=== PATIENT | female | born 1960 | race Caucasian/White ===

== ENCOUNTER 2020-03-05 13:52 | Emergency (ER) | payer OTHER ==
[2020-03-05 14:03] VITALS: BP 126/63; PULSE 76
--- NOTE | 2020-03-05 15:11 | CT ---
[id number] CT/CT Head WO IV EXAM: CT Head WO IV CLINICAL DATA: TRAUMA HEADACHE COMPARISON: NO PREVIOUS SIMILAR EXAM IS AVAILABLE FOR COMPARISON. FINDINGS: Craniectomy changes are seen There is no mass or mass effect. There is no hemorrhage or hydrocephalus. There are no extra-axial fluid collections. There are no sites of abnormal attenuation. IMPRESSION: NO PLAIN CT EVIDENCE OF ACUTE INTRACRANIAL PROCESS. Albert Sidhu MD 03/05/20 2803 Thank you for allowing us to participate in the care of your patient.
--- NOTE | 2020-03-05 15:15 | EDM.PDOC ---
ED HPI GENERAL MEDICAL PROBLEM - General Chief Complaint: General Stated Complaint: FELL AT WORK HIT HEAD Time Seen by Provider: 03/05/20 14:10 Source of Information: Reports: Patient History Limitations: Reports: No Limitations - History of Present Illness INITIAL COMMENTS - FREE TEXT/NARRATIVE: Patient comes emergency department today with complaints of a fall and head injury and jaw pain. Just prior to arrival the patient was at work when she was stepping off the bus she tripped fell landing on her left side. She struck her left confucianism and her left jaw. There was no loss of conscious. She did have a period of unsteadiness shortly thereafter that has resolved. She has no double vision. Vertigo or blurry vision. She complains of pain to her left confucianism. No intercranial headache. No nausea no vomiting. No weakness dizziness lightheadedness. No neck pain. She denies loss conscious. She denies any fever or chills. No shortness of breath cough or congestion. No abdominal pain nausea or vomiting. She does complain of some pain just on the left lower midline position of her jawline. No damage to her teeth. No difficulty swallowing. No COVID symptoms no COVID exposure. - Related Data Allergies Allergy/AdvReac Type Severity Reaction Status Date / Time No Known Allergies Allergy Verified 03/05/20 14:05 Home Meds: Home Meds Aspirin [Ecotrin] 325 mg PO DAILY 10/04/13 [History] Calcium Carbonate/Vitamin D3 [Caltrate-600 with Vit D Tab] 2 each PO DAILY 10/04/13 [History] Cyanocobalamin (Vitamin B-12) [B-12] 250 mcg PO DAILY 10/04/13 [History] Iron 22 mg PO DAILY 10/04/13 [History] Melatonin 10 mg PO BEDTIME 10/04/13 [History] Multivitamin with Minerals [Multiple Vitamin] 1 tab PO DAILY 10/04/13 [History] Troy-3 Fatty Acids [Troy-3] 1,000 mg PO DAILY 10/04/13 [History] Ubidecarenone [Co Q-10] 100 mg PO DAILY 10/04/13 [History] Vitamin A 8,000 unit PO DAILY 10/04/13 [History] Simvastatin [Zocor] 20 mg PO BEDTIME 03/05/20 [History] Past Medical History Cardiovascular History: Reports: High Cholesterol Social & Family History - Tobacco Use Tobacco Use Status *Q: Unknown Ever Used Tobacco ED ROS GENERAL - Review of Systems Review Of Systems: Comprehensive ROS is negative, except as noted in HPI. ED EXAM, GENERAL - Physical Exam Exam: See Below Exam Limited By: No Limitations General Appearance: Alert, WD/WN, No Apparent Distress Eye Exam: Bilateral Eye: EOMI, PERRL Ears: Normal External Exam, Normal Canal, Normal TMs Ear Exam: Bilateral Ear: TM normal Nose: Normal Inspection, Normal Mucosa, No Blood Throat/Mouth: Normal Inspection, Normal Lips, Normal Teeth, Normal Gums, Normal Oropharynx, Normal Voice, No Airway Compromise Head: No: Atraumatic (The patient has a small contusion on the left lateral upper eyebrow. Without any crepitus bony deformity or subcutaneous emphysema. She also has a very small contusion on the midline of the jaw just to the left on the inferior aspect. There is no overt bony deformity crepitus or pain. Rest of the head is atraumatic.) Neck: Normal Inspection, Supple. No: Tender Lateral, Tender Midline Respiratory/Chest: No Respiratory Distress, Lungs Clear, Normal Breath Sounds, No Accessory Muscle Use, Chest Non-Tender Cardiovascular: Normal Peripheral Pulses, Regular Rate, Rhythm GI/Abdominal: Normal Bowel Sounds, Non-Tender Back Exam: Normal Inspection, Full Range of Motion. No: Paraspinal Tenderness, Vertebral Tenderness Extremities: Normal Inspection, Normal Range of Motion, No Pedal Edema, Normal Capillary Refill Neurological: Alert, Oriented, No Motor/Sensory Deficits Psychiatric: Normal Affect, Normal Mood Skin Exam: Warm, Dry, Intact, Normal Color, No Rash Course - Vital Signs Last Recorded V/S: Last Vital Signs Temp 98.2 F 03/05/20 13:57 Pulse 76 03/05/20 13:57 Resp 16 03/05/20 13:57 BP 126/63 03/05/20 13:57 Pulse Ox 99 03/05/20 13:57 - Radiology Interpretation Free Text/Narrative:: CT of the head per radiology shows no plain CT evidence of acute intracranial process. Departure - Departure Time of Disposition: 15:13 Disposition: Home, Self-Care 01 Clinical Impression: Fall Qualifiers: Encounter type: initial encounter Qualified Code(s): W19.XXXA - Unspecified fall, initial encounter Contusion of jawline Qualifiers: Encounter type: initial encounter Qualified Code(s): S00.83XA - Contusion of other part of head, initial encounter Forehead contusion Qualifiers: Encounter type: initial encounter Qualified Code(s): S00.83XA - Contusion of other part of head, initial encounter - Discharge Information Instructions: How to Use Cold Therapy, [id number], Facial or Scalp Contusion, [id number], Contusion, [id number], How to Use Cold Therapy, Jaw Contusion, [id number]-[id number] Referrals: Rhonda Brito NP [Primary Care Provider] - Forms: ED Department Discharge Additional Instructions: Tylenol and or Ibuprofen as needed for pain. Ice to the sore areas. Recheck if any concerns. Sepsis Event Note (ED) - Evaluation Sepsis Screening Result: No Definite Risk - Focused Exam Vital Signs: Vital Signs Temp Pulse Resp BP Pulse Ox 03/05/20 13:57 98.2 F 76 16 126/63 99
== END 2020-03-05 15:21 | disposition home or self-care (01) ==
LOC: VM.ED 13:52
DX: S00.83XA Contusion of other part of head, initial encounter (principal); E78.00 Pure hypercholesterolemia, unspecified; Z79.82 Long term (current) use of aspirin; Z79.899 Other long term (current) drug therapy; W01.0XXA Fall on same level from slipping, tripping and stumbling without subsequent striking against object, initial encounter; Y99.0 Civilian activity done for income or pay
CPT/HCPCS: 70450; 99283; 99283-25

== ENCOUNTER 2023-10-09 09:37 | Day surgery (SDC) | payer OTHER ==
[2023-10-09] MEDS: Lactated Ringers 1,000 ML IV SCH (09:54)
[2023-10-09] MEDS ORDERED: Propofol 200 MG/20 ML SDV ONE (10:35)
[2023-10-09] MEDS ORDERED: Midazolam 1 MG/ML 2 ML SDV ONE (10:36)
[2023-10-09] MEDS ORDERED: fentaNYL 100 MCG/2 ML SDV ONE (10:36)
[2023-10-09 11:46] VITALS: BP 115/76; PULSE 53
== END 2023-10-09 12:22 | disposition home or self-care (01) ==
LOC: VM.SDS 09:37
PROVIDERS: ATTEND Surgery
DX: Z12.11 Encounter for screening for malignant neoplasm of colon (principal); G47.00 Insomnia, unspecified; E78.5 Hyperlipidemia, unspecified; M85.80 Other specified disorders of bone density and structure, unspecified site; D22.9 Melanocytic nevi, unspecified; Z79.82 Long term (current) use of aspirin; Z79.899 Other long term (current) drug therapy
CPT/HCPCS: J2250; J2704; J3010; J7120